=== PATIENT | female | born 1955 | race Caucasian/White ===

== ENCOUNTER 2021-08-06 22:47 | Emergency (ER) | payer MEDICAID ==
[~2021-08-06] VITALS: Ht 152.4 cm; Wt 71.7 kg
--- NOTE | 2021-08-06 22:55 | NUR ---
Pt brought back to room ED2A by armor reconnaissance vehicle crewman Adrian for Rt shoulder and rt flank pain s/p ground level fall at a spa. Pt complaining of moderate pain at site of injury. No bruising or barclay noted. Pt is AAOx4, with good color, temp and appearance. Pt states that the fall was due to a loss of balance and not due to blacking out or fainting. Pt denies any LOC. Pt is hypertensive at 157/76, all other VS normal. Pt denies being under treatment for HTN. Pt placed in a gown and awaiting EDMD for eval.
--- NOTE | 2021-08-06 23:10 | NUR ---
PCXR at bedside for port CXR. EKG performed and shown to EDMD.
[2021-08-06] MEDS ORDERED: ALBU8.5H8 IH (23:45)
[2021-08-06] MEDS ORDERED: MORPHINE SULFATE 2 MG/1 ML DISP.SYRIN IM ONE (23:45)
--- NOTE | 2021-08-06 23:49 | NUR ---
1mg MS IM given to pt in the Lt upper arm per EDMD for pain. Pt tolerated well, no s/sx of reaction noted. Med was effective against pain of injury site. Pt states that she feels much better and is much more relaxed. VSS
[2021-08-06] MEDS ORDERED: MORPHINE SULFATE 2 MG/1 ML DISP.SYRIN ONE (23:51)
[2021-08-07] MEDS ORDERED: ACET1TAB23 PO (01:01)
[2021-08-07] MEDS ORDERED: [UNRECOGNIZED DRUG - CODE] PO (01:01)
--- NOTE | 2021-08-07 01:08 | NUR ---
Tdap shot administered to Pt's Rt deltoid without difficulty or reaction, per EDMD. Pt tolerated well with no complaints of pain or discomfort.
[2021-08-07] MEDS ORDERED: TDAP DIPH,PERTUSS,TET VAC/PF 0.5 ML DISP.SYRIN IM ONE ×2 (01:15→01:17)
--- NOTE | 2021-08-07 01:15 | NUR ---
Discharge instructions given to daughter of pt to translate to pt. Pt acknowledges understanding of aftercare instructions and promises to abide by the advise contained in the DC instructions. Info about med risk factors given to daughter of pt such as risk of addiction, risk of sedation, no operating heavy machinery or driving while taking the tylenol #3. Pt warned of the risk of addiction and to use the pain pill sparingly, only in cases of moderate or severe pain, for mild pain, please use motrin 200mg. Pt is markedly doing better since first arriving. VSS, PE WNL, strong and equal manufacturing specialist strength bilat. Strong and reg pulses x4ext. Pt escorted out of ED via ambulation, after signing DC paperwork accompanied by daughter. No complaints of pain, nausea. No s/sx of distress present.
[2021-08-07 01:50] VITALS: BP 152/76
== END 2021-08-07 01:15 | disposition home or self-care (01) ==
LOC: ER 22:50
DX: R07.89 Other chest pain (principal); S50.811A Abrasion of right forearm, initial encounter; W16.032A Fall into swimming pool striking wall causing other injury, initial encounter; Y92.89 Other specified places as the place of occurrence of the external cause; R00.1 Bradycardia, unspecified
CPT/HCPCS: 71101; 90715; 93005; A4663; J2270

== ENCOUNTER 2023-09-11 16:03 | Inpatient (IN) | payer MEDICAID ==
[~2023-09-11] VITALS: Ht 162.6 cm; Wt 77.3 kg
[~2023-09-11 16:03] MED LIST: ACET1TAB23 PO; ALBU8.5H8 IH; [UNRECOGNIZED DRUG - CODE] PO
[2023-09-11] MEDS ORDERED: ALBU8.5H8 INH (16:56)
[2023-09-11] MEDS ORDERED: PRED50TA PO (16:56)
[2023-09-11 17:12] LABS: BASOPHILS # (AUTO) 0.1 K/UL (0.0-0.2); BASOPHILS % (AUTO) 1.1 % (0.0-2.0); EOSINOPHILS # (AUTO) 0.3 K/uL (0.0-0.7); EOSINOPHILS % (AUTO) 2.5 % (0.0-7.0); HEMATOCRIT 41.9 % (31.2-41.9); HEMOGLOBIN 13.9 g/dL (10.9-14.3); LYMPHOCYTES # (AUTO) 2.7 K/uL (0.8-4.8); LYMPHOCYTES % (AUTO) 21.7 % (20.5-51.5); MEAN CORPUSCULAR HEMOGLOBIN 29.9 uug (24.7-32.8); MEAN CORPUSCULAR HGB CONC 33 g/dL (32.3-35.6); MEAN CORPUSCULAR VOLUME 90.3 fL (75.5-95.3); MONOCYTES # (AUTO) 1.5 K/uL (0.1-1.30); MONOCYTES % (AUTO) 12.1 % (0.0-11.0); NEUTROPHILS # (AUTO) 7.7 K/uL (1.8-8.9); NEUTROPHILS % (AUTO) 62.6 % (38.5-71.5); PLATELET COUNT (AUTO) 256 K/uL (179-408); RED BLOOD CELL COUNT(AUTO) 4.64 MIL/uL (3.63-4.92); RED CELL DISTRIBUTION WIDTH 13.9 % (12.3-17.7); WHITE BLOOD COUNT (AUTO) 12.3 K/uL (3.8-11.8)
[2023-09-11] MEDS ORDERED: methylPREDNISolone SOD SUCC 125 MG/2 ML VIAL ONE (17:13)
[2023-09-11 17:15] LABS: DIFFERENTIAL COMMENT 1
[2023-09-11] MEDS ORDERED: methylPREDNISolone SOD SUCC 125 MG/2 ML VIAL IV ONE (17:15)
[2023-09-11] MEDS ORDERED: IPRATROPIUM BROMIDE 0.5 MG/2.5 ML NEBU NEB ONE (17:15)
[2023-09-11] MEDS ORDERED: ALBUTEROL SULFATE 2.5 MG/3 ML NEBU NEB ONE (17:15)
[2023-09-11 17:16] LABS: CALCIUM 8.8 mg/dL (8.5-10.1); CARBON DIOXIDE 28 mmol/L (21-32); CHLORIDE 107 mmol/L (98-107); CREATININE 0.8 mg/dL (0.6-1.3); GLUCOSE 113 mg/dL (74-106); POTASSIUM 3.6 mmol/L (3.5-5.1); SODIUM SERUM 138 mmol/L (136-145); UREA NITROGEN, BLOOD 13 mg/dL (7-18)
[2023-09-11 17:30] LABS: ALANINE AMINOTRANSFERASE 33 U/L (14-59); ALBUMIN 3.4 g/dL (3.4-5.0); ALKALINE PHOSPHATASE 58 U/L (50-136); ASPARTATE AMINOTRANSFERASE 23 U/L (15-37); BILIRUBIN,DIRECT 0.1 mg/dL (0.0-0.2); BILIRUBIN,TOTAL 0.4 mg/dL (0.2-1.0); NT-PRO BNP 133 pg/mL (0-125); TOTAL PROTEIN, SERUM 7.5 g/dL (6.4-8.2)
[2023-09-11] MEDS ORDERED: IPRATROPIUM BROMIDE 0.5 MG/2.5 ML NEBU ONE (17:33)
[2023-09-11] MEDS ORDERED: ALBUTEROL SULFATE 2.5 MG/3 ML NEBU ONE (17:33)
[2023-09-11 17:44] VITALS: O2SAT 96
[2023-09-11 18:33] VITALS: O2SAT 96
[2023-09-11 18:44] VITALS: O2SAT 97
[2023-09-11] MEDS ORDERED: FUROSEMIDE 20 MG/2 ML VIAL IV ONE (18:45)
[2023-09-11] MEDS ORDERED: ONDANSETRON 4 MG/2 ML VIAL IV ONE (18:45)
[2023-09-11] MEDS ORDERED: LORAZEPAM 2 MG/1 ML VIAL ONE (18:52)
[2023-09-11] MEDS ORDERED: ONDANSETRON 4 MG/2 ML VIAL ONE (18:53)
[2023-09-11] MEDS ORDERED: FUROSEMIDE 20 MG/2 ML VIAL ONE (18:53)
[2023-09-11] MEDS ORDERED: levoFLOXacin 750MG/D5W 150 ML IV ONE ×2 (19:15→19:27)
[2023-09-11] MEDS ORDERED: diphenhydrAMINE 50 MG/1 ML VIAL ONE (20:08)
[2023-09-11] MEDS ORDERED: diphenhydrAMINE 50 MG/1 ML VIAL IV PRN (20:15)
[2023-09-11] MEDS ORDERED: ACETAMINOPHEN 325 MG TABLET PO PRN (21:30)
[2023-09-11] MEDS ORDERED: ONDANSETRON 4 MG/2 ML VIAL IV PRN (21:30)
[2023-09-11] MEDS ORDERED: ZOLPIDEM 5 MG TABLET PO PRN (21:30)
[2023-09-11] MEDS ORDERED: REMEDY ESSENTIAL ZINC PASTE 113 GM TP PRN (21:30)
[2023-09-11] MEDS ORDERED: ALBUTEROL SULFATE 1.25 MG/3 ML NEBU NEB PRN (21:30)
[2023-09-11] MEDS ORDERED: levoFLOXacin 500 MG/D5W 500 MG in PREMIXED 1 EACH IV SCH (21:30)
[2023-09-11] MEDS ORDERED: MAGNESIUM HYDROXIDE 30 ML LIQUID UDC PO PRN (21:30)
[2023-09-11 21:52] VITALS: BP 140/65; TEMP 98.4; O2SAT 96
[2023-09-11] MEDS ORDERED: methylPREDNISolone SOD SUCC 40 MG/ML VIAL IV SCH (22:00)
[2023-09-12] VITALS (9 sets, daily range): BP systolic 127–158; BP diastolic 53–74; TEMP 98.2–100.6; O2SAT 94–99
[2023-09-12] MEDS: methylPREDNISolone SOD SUCC 40 MG/ML VIAL IV SCH ×4 (00:05→21:20)
[2023-09-12 06:23] LABS: BASOPHILS % (AUTO) 0.1 % (0.0-2.0); HEMATOCRIT 41.9 % (31.2-41.9); HEMOGLOBIN 13.8 g/dL (10.9-14.3); MEAN CORPUSCULAR HGB CONC 33 g/dL (32.3-35.6); MEAN CORPUSCULAR VOLUME 91.1 fL (75.5-95.3); MONOCYTES # (AUTO) 0.2 K/uL (0.1-1.30); MONOCYTES % (AUTO) 2.3 % (0.0-11.0); NEUTROPHILS # (AUTO) 7.8 K/uL (1.8-8.9); NEUTROPHILS % (AUTO) 86.6 % (38.5-71.5); PLATELET COUNT (AUTO) 280 K/uL (179-408); RED CELL DISTRIBUTION WIDTH 13.8 % (12.3-17.7); WHITE BLOOD COUNT (AUTO) 9.1 K/uL (3.8-11.8)
[2023-09-12 06:59] LABS: DIFFERENTIAL COMMENT 1
[2023-09-12 07:03] LABS: CALCIUM 9.5 mg/dL (8.5-10.1); CREATININE 1.3 mg/dL (0.6-1.3); MAGNESIUM 2.3 mg/dL (1.8-2.4); PHOSPHOROUS 2.8 mg/dL (2.5-4.9); POTASSIUM 3.9 mmol/L (3.5-5.1)
[2023-09-12] MEDS ORDERED: CEFTRIAXONE 1 G VIAL IM SCH (09:00)
[2023-09-12] MEDS: CEFTRIAXONE 1 G in IV DEXTROSE 5% 50 ML IV SCH (09:15)
[2023-09-12] MEDS: ALBUTEROL SULFATE 2.5 MG/3 ML NEBU NEB PRN (10:41)
[2023-09-12] MEDS: IPRATROPIUM BROMIDE 0.5 MG/2.5 ML NEBU NEB PRN (10:41)
[2023-09-12 10:58] LABS: THYROID STIMULATING HORMONE 0.47 mIU/mL (0.358-3.740)
[2023-09-12] MEDS ORDERED: AMLODIPINE 10 MG TABLET PO ONE (15:45)
[2023-09-12] MEDS ORDERED: AMLODIPINE 10 MG TABLET PO SCH (17:00)
[2023-09-12] MEDS: AZITHROMYCIN IV 500 MG in IV DEXTROSE 5% 250 ML IV SCH (17:14)
[2023-09-12] MEDS ORDERED: DEXTROSE 50% 50 ML DISP.SYRIN IV PRN (19:00)
[2023-09-12] MEDS: INSULIN REGULAR, HUMAN 300 UNITS/3 ML VIAL SQ PRN (21:16)
[2023-09-12] MEDS: BLOOD SUGAR DIAGNOSTIC 1 EACH STRIP VI SCH (21:27)
[2023-09-13] VITALS (9 sets, daily range): BP systolic 117–158; BP diastolic 71–80; TEMP 97.8–98.6; O2SAT 96–99
[2023-09-13] MEDS: ALBUTEROL SULFATE 2.5 MG/3 ML NEBU NEB PRN ×2 (02:15→13:14)
[2023-09-13] MEDS: IPRATROPIUM BROMIDE 0.5 MG/2.5 ML NEBU NEB PRN ×2 (02:15→13:14)
[2023-09-13 06:10] LABS: HEMATOCRIT 40.3 % (31.2-41.9); HEMOGLOBIN 13.2 g/dL (10.9-14.3); LYMPHOCYTES # (AUTO) 1.5 K/uL (0.8-4.8); LYMPHOCYTES % (AUTO) 6.1 % (20.5-51.5); MEAN CORPUSCULAR HEMOGLOBIN 29.6 uug (24.7-32.8); MEAN CORPUSCULAR HGB CONC 33 g/dL (32.3-35.6); MEAN CORPUSCULAR VOLUME 90.5 fL (75.5-95.3); MONOCYTES # (AUTO) 1.1 K/uL (0.1-1.30); MONOCYTES % (AUTO) 4.4 % (0.0-11.0); NEUTROPHILS % (AUTO) 89.5 % (38.5-71.5); PLATELET COUNT (AUTO) 306 K/uL (179-408); RED BLOOD CELL COUNT(AUTO) 4.45 MIL/uL (3.63-4.92); RED CELL DISTRIBUTION WIDTH 13.6 % (12.3-17.7); WHITE BLOOD COUNT (AUTO) 24.6 K/uL (3.8-11.8)
[2023-09-13] MEDS: methylPREDNISolone SOD SUCC 40 MG/ML VIAL IV SCH ×2 (06:14→20:25)
[2023-09-13] MEDS: BLOOD SUGAR DIAGNOSTIC 1 EACH STRIP VI SCH ×4 (06:15→20:22)
[2023-09-13 06:45] LABS: DIFFERENTIAL COMMENT 1
[2023-09-13 06:54] LABS: CALCIUM 9.5 mg/dL (8.5-10.1); MAGNESIUM 2.3 mg/dL (1.8-2.4); PHOSPHOROUS 2.9 mg/dL (2.5-4.9); POTASSIUM 4.3 mmol/L (3.5-5.1)
[2023-09-13] MEDS: CEFTRIAXONE 1 G in IV DEXTROSE 5% 50 ML IV SCH (08:15)
[2023-09-13] MEDS: AMLODIPINE 10 MG TABLET PO SCH (08:28)
[2023-09-13] MEDS: INSULIN REGULAR, HUMAN 300 UNIT/3 ML VIAL SQ PRN ×3 (08:29→16:34)
[2023-09-13] MEDS ORDERED: ASPIRIN EC 325 MG TABLET.DR PO ONE (14:17)
[2023-09-13] MEDS ORDERED: hydrALAZINE HCL 25 MG TABLET PO PRN (14:30)
[2023-09-13] MEDS ORDERED: GUAIFENESIN SUGAR FREE 100 MG/5 ML UDC PO PRN (16:00)
[2023-09-13] MEDS: AZITHROMYCIN IV 500 MG in IV DEXTROSE 5% 250 ML IV SCH (16:17)
[2023-09-13] MEDS ORDERED: BENZONATATE 100 MG CAPSULE PO SCH (19:15)
[2023-09-13] MEDS: INSULIN REGULAR, HUMAN 300 UNITS/3 ML VIAL SQ PRN (20:23)
[2023-09-13] MEDS: BENZONATATE 100 MG CAPSULE PO PRN (23:46)
[2023-09-14] VITALS (10 sets, daily range): BP systolic 130–146; BP diastolic 44–70; TEMP 97.7–98.9; O2SAT 92–100
[2023-09-14] MEDS: BLOOD SUGAR DIAGNOSTIC 1 EACH STRIP VI SCH ×4 (06:31→20:26)
[2023-09-14 07:50] LABS: BASOPHILS # (AUTO) 0.2 K/UL (0.0-0.2); BASOPHILS % (AUTO) 1.1 % (0.0-2.0); DIFFERENTIAL COMMENT 0; HEMATOCRIT 41.2 % (31.2-41.9); HEMOGLOBIN 13.4 g/dL (10.9-14.3); LYMPHOCYTES # (AUTO) 1.3 K/uL (0.8-4.8); LYMPHOCYTES % (AUTO) 5.9 % (20.5-51.5); MEAN CORPUSCULAR HEMOGLOBIN 29.9 uug (24.7-32.8); MEAN CORPUSCULAR HGB CONC 33 g/dL (32.3-35.6); MEAN CORPUSCULAR VOLUME 91.9 fL (75.5-95.3); MONOCYTES # (AUTO) 0.7 K/uL (0.1-1.30); NEUTROPHILS # (AUTO) 20.3 K/uL (1.8-8.9); PLATELET COUNT (AUTO) 316 K/uL (179-408); RED BLOOD CELL COUNT(AUTO) 4.48 MIL/uL (3.63-4.92); WHITE BLOOD COUNT (AUTO) 22.6 K/uL (3.8-11.8)
[2023-09-14 07:51] LABS: CALCIUM 9.7 mg/dL (8.5-10.1); CREATININE 0.8 mg/dL (0.6-1.3); MAGNESIUM 2.6 mg/dL (1.8-2.4); POTASSIUM 4.4 mmol/L (3.5-5.1)
[2023-09-14] MEDS: CEFTRIAXONE 1 G in IV DEXTROSE 5% 50 ML IV SCH (08:18)
[2023-09-14] MEDS: methylPREDNISolone SOD SUCC 40 MG/ML VIAL IV SCH ×2 (08:19→21:23)
[2023-09-14] MEDS: BENZONATATE 100 MG CAPSULE PO PRN ×2 (08:19→16:26)
[2023-09-14] MEDS: AMLODIPINE 10 MG TABLET PO SCH (08:20)
[2023-09-14] MEDS: ASPIRIN 81 MG TAB.CHEW PO SCH (08:38)
[2023-09-14] MEDS: INSULIN REGULAR, HUMAN 300 UNIT/3 ML VIAL SQ PRN ×2 (11:37→16:48)
[2023-09-14] MEDS ORDERED: methylPREDNISolone SOD SUCC 40 MG/ML VIAL IV PRN (13:45)
[2023-09-14] MEDS: AZITHROMYCIN IV 500 MG in IV DEXTROSE 5% 250 ML IV SCH (16:00)
[2023-09-14] MEDS: ALBUTEROL SULFATE 2.5 MG/3 ML NEBU NEB PRN ×2 (18:07→22:23)
[2023-09-14] MEDS: IPRATROPIUM BROMIDE 0.5 MG/2.5 ML NEBU NEB PRN ×2 (18:07→22:23)
[2023-09-14] MEDS: ATORVASTATIN 40 MG TABLET PO SCH (20:22)
[2023-09-14] MEDS: INSULIN REGULAR, HUMAN 300 UNITS/3 ML VIAL SQ PRN (21:25)
[2023-09-14] MEDS: ACETAMINOPHEN/CODEINE 300-30 MG TABLET PO PRN (22:29)
[2023-09-15] VITALS (10 sets, daily range): BP systolic 113–153; BP diastolic 56–72; TEMP 97.1–98.6; O2SAT 94–99
[2023-09-15] MEDS: methylPREDNISolone SOD SUCC 40 MG/ML VIAL IV SCH ×3 (06:11→22:07)
[2023-09-15] MEDS: BLOOD SUGAR DIAGNOSTIC 1 EACH STRIP VI SCH ×4 (06:11→20:17)
[2023-09-15 07:03] LABS: BASOPHILS % (AUTO) 0.1 % (0.0-2.0); HEMATOCRIT 39.9 % (31.2-41.9); HEMOGLOBIN 13.1 g/dL (10.9-14.3); LYMPHOCYTES # (AUTO) 1.6 K/uL (0.8-4.8); LYMPHOCYTES % (AUTO) 8.4 % (20.5-51.5); MEAN CORPUSCULAR HEMOGLOBIN 29.9 uug (24.7-32.8); MEAN CORPUSCULAR HGB CONC 33 g/dL (32.3-35.6); MEAN CORPUSCULAR VOLUME 90.8 fL (75.5-95.3); MONOCYTES # (AUTO) 0.7 K/uL (0.1-1.30); MONOCYTES % (AUTO) 3.7 % (0.0-11.0); NEUTROPHILS # (AUTO) 16.6 K/uL (1.8-8.9); NEUTROPHILS % (AUTO) 87.8 % (38.5-71.5); PLATELET COUNT (AUTO) 350 K/uL (179-408); RED CELL DISTRIBUTION WIDTH 14.1 % (12.3-17.7); WHITE BLOOD COUNT (AUTO) 18.9 K/uL (3.8-11.8)
[2023-09-15 07:15] LABS: DIFFERENTIAL COMMENT 1
[2023-09-15 07:19] LABS: CALCIUM 9.7 mg/dL (8.5-10.1); CREATININE 0.9 mg/dL (0.6-1.3); MAGNESIUM 2.6 mg/dL (1.8-2.4); PHOSPHOROUS 3.5 mg/dL (2.5-4.9); POTASSIUM 4.5 mmol/L (3.5-5.1)
[2023-09-15] MEDS: CEFTRIAXONE 1 G in IV DEXTROSE 5% 50 ML IV SCH (08:22)
[2023-09-15] MEDS: ACETAMINOPHEN/CODEINE 300-30 MG TABLET PO PRN ×3 (08:23→22:07)
[2023-09-15] MEDS: ASPIRIN 81 MG TAB.CHEW PO SCH (08:23)
[2023-09-15] MEDS: BENZONATATE 100 MG CAPSULE PO PRN ×2 (08:23→15:44)
[2023-09-15] MEDS: AMLODIPINE 10 MG TABLET PO SCH (08:23)
[2023-09-15] MEDS: LIDOCAINE 5% PATCH TD SCH (11:17)
[2023-09-15] MEDS: ALBUTEROL SULFATE 2.5 MG/3 ML NEBU NEB SCH ×3 (11:30→19:35)
[2023-09-15] MEDS: IPRATROPIUM BROMIDE 0.5 MG/2.5 ML NEBU NEB SCH ×3 (11:30→19:35)
[2023-09-15] MEDS: INSULIN REGULAR, HUMAN 300 UNIT/3 ML VIAL SQ PRN ×3 (12:36→17:52)
[2023-09-15] MEDS: AZITHROMYCIN IV 500 MG in IV DEXTROSE 5% 250 ML IV SCH (16:49)
[2023-09-15] MEDS: ATORVASTATIN 40 MG TABLET PO SCH (20:13)
[2023-09-15] MEDS: INSULIN REGULAR, HUMAN 300 UNITS/3 ML VIAL SQ PRN (20:18)
[2023-09-16 00:20] VITALS: BP 136/76; TEMP 98.7; O2SAT 92
[2023-09-16 04:00] VITALS: BP 131/63; TEMP 98.3; O2SAT 98
[2023-09-16] MEDS: methylPREDNISolone SOD SUCC 40 MG/ML VIAL IV SCH (06:14)
[2023-09-16] MEDS: BLOOD SUGAR DIAGNOSTIC 1 EACH STRIP VI SCH (06:30)
[2023-09-16 07:21] LABS: BASOPHILS % (AUTO) 0.1 % (0.0-2.0); HEMATOCRIT 40.6 % (31.2-41.9); HEMOGLOBIN 13.5 g/dL (10.9-14.3); LYMPHOCYTES # (AUTO) 1.7 K/uL (0.8-4.8); LYMPHOCYTES % (AUTO) 8.2 % (20.5-51.5); MEAN CORPUSCULAR HGB CONC 33 g/dL (32.3-35.6); MEAN CORPUSCULAR VOLUME 90.1 fL (75.5-95.3); MONOCYTES # (AUTO) 0.8 K/uL (0.1-1.30); MONOCYTES % (AUTO) 3.8 % (0.0-11.0); NEUTROPHILS # (AUTO) 18.7 K/uL (1.8-8.9); NEUTROPHILS % (AUTO) 87.9 % (38.5-71.5); PLATELET COUNT (AUTO) 363 K/uL (179-408); RED CELL DISTRIBUTION WIDTH 13.8 % (12.3-17.7); WHITE BLOOD COUNT (AUTO) 21.2 K/uL (3.8-11.8)
[2023-09-16 07:27] LABS: DIFFERENTIAL COMMENT 1
[2023-09-16 07:33] LABS: ALBUMIN 3.1 g/dL (3.4-5.0); BILIRUBIN,TOTAL 0.3 mg/dL (0.2-1.0); CALCIUM 9.7 mg/dL (8.5-10.1); CREATININE 0.9 mg/dL (0.6-1.3); MAGNESIUM 2.6 mg/dL (1.8-2.4); PHOSPHOROUS 3.7 mg/dL (2.5-4.9); POTASSIUM 4.3 mmol/L (3.5-5.1)
[2023-09-16] MEDS: ALBUTEROL SULFATE 2.5 MG/3 ML NEBU NEB SCH ×2 (07:35→07:46)
[2023-09-16] MEDS: IPRATROPIUM BROMIDE 0.5 MG/2.5 ML NEBU NEB SCH ×2 (07:35→07:46)
[2023-09-16 08:05] VITALS: BP 145/69; TEMP 98.4; O2SAT 93
[2023-09-16 08:12] LABS: ABG BASE EXCESS 4.1 mmol/L (-2.0-2.0); ABG HCO3 28.5 mmol/L (22.0-26.0); ABG PCO2 41.8 mmHg (35.0-48.0); ABG PH 7.451 (7.340-7.440); ABG PO2 75.9 mmHg (75.0-100.0); ABG SITE LEFT RADIAL; AaDO2 95.7 mmHg; COHb 0.3 % (0.0-3.9); MetHb 0.4 % (0.0-1.5); O2Hb 95.1 % (94.0-97.0)
[2023-09-16] MEDS: LIDOCAINE 5% PATCH TD SCH (08:29)
[2023-09-16 08:30] VITALS: BP 145/69
[2023-09-16] MEDS: ASPIRIN 81 MG TAB.CHEW PO SCH (08:30)
[2023-09-16] MEDS: AMLODIPINE 10 MG TABLET PO SCH (08:30)
[2023-09-16] MEDS: CEFTRIAXONE 1 G in IV DEXTROSE 5% 50 ML IV SCH (08:30)
[2023-09-16] MEDS: INSULIN REGULAR, HUMAN 300 UNIT/3 ML VIAL SQ PRN (08:31)
[2023-09-16] MEDS ORDERED: FLUTICASONE PROP NASAL SPRAY 16 GM BOTTLE NS SCH (09:00)
[2023-09-16] MEDS ORDERED: AMLO10TA59 PO (10:43)
[2023-09-16] MEDS ORDERED: FLUT1DIS28 INH (10:43)
[2023-09-16] MEDS ORDERED: BENZ-38 PO (10:43)
[2023-09-16] MEDS ORDERED: METH4TAB3 PO (10:43)
[2023-09-16] MEDS ORDERED: FLUT16SP16 NS (10:43)
[2023-09-16] MEDS ORDERED: ATOR40TA PO (10:43)
[2023-09-16] MEDS ORDERED: ASPI81TA31 PO (10:43)
== END 2023-09-16 11:30 | disposition home or self-care (01) | DRG 133 ==
LOC: ER 16:04 → TELE3 19:26
PROVIDERS: ADMIT Nurse Practitioner Acute Care; ATTEND Student in an Organized Health Care Education/Training Program
DX: J96.01 Acute respiratory failure with hypoxia (principal); N17.0 Acute kidney failure with tubular necrosis; I21.A1 Myocardial infarction type 2; J45.901 Unspecified asthma with (acute) exacerbation; J20.9 Acute bronchitis, unspecified; I11.9 Hypertensive heart disease without heart failure; E86.0 Dehydration; R91.1 Solitary pulmonary nodule; E78.5 Hyperlipidemia, unspecified; Z86.16 Personal history of COVID-19; R73.9 Hyperglycemia, unspecified; T38.0X5A Adverse effect of glucocorticoids and synthetic analogues, initial encounter; Y92.89 Other specified places as the place of occurrence of the external cause; J32.8 Other chronic sinusitis; M94.0 Chondrocostal junction syndrome [Tietze]; Z91.09 Other allergy status, other than to drugs and biological substances; I45.2 Bifascicular block; E66.9 Obesity, unspecified; Z68.29 Body mass index [BMI] 29.0-29.9, adult; G89.29 Other chronic pain; M19.90 Unspecified osteoarthritis, unspecified site; F17.210 Nicotine dependence, cigarettes, uncomplicated; Z83.6 Family history of other diseases of the respiratory system; Z91.199 Patient's noncompliance with other medical treatment and regimen due to unspecified reason; J34.2 Deviated nasal septum
CPT/HCPCS: 36415; 36600; 70486; 71045; 71250; 82652; 82785; 83605; 83735; 84100; 84443; 84484; 85025; 85730; 86140; 87040; 93005; 93307; 94640; A4606; A4663; G0378; J0456; J0696; J1200; J1815; J1940; J1956; J2060; J2405; J2920; J2930; J3535; J3590; J7050

== ENCOUNTER 2024-10-31 00:11 | Inpatient (IN) | payer MEDICAID ==
[2024-10-31] VITALS (10 sets, daily range): BP systolic 122–136; BP diastolic 48–66; TEMP 98.2–98.5; O2SAT 87–99
[~2024-10-31] VITALS: Ht 160 cm; Wt 76.2 kg
[~2024-10-31 00:11] MED LIST changes: +AMLO10TA59 PO; +ASPI81TA31 PO; +ATOR40TA PO; +BENZ-38 PO; +FLUT16SP16 NS; +FLUT1DIS28 INH; +METH4TAB3 PO
[2024-10-31] MEDS: ALBUTEROL SULFATE 2.5 MG/3 ML NEBU NEB ONE (00:45)
[2024-10-31] MEDS: IPRATROPIUM BROMIDE 0.5 MG/2.5 ML NEBU NEB ONE (00:45)
[2024-10-31] MEDS ORDERED: IPRATROPIUM BROMIDE 0.5 MG/2.5 ML NEBU ONE (00:49)
[2024-10-31] MEDS ORDERED: ALBUTEROL SULFATE 2.5 MG/3 ML NEBU ONE (00:49)
[2024-10-31 01:13] LABS: BASOPHILS % (AUTO) 0.1 % (0.0-2.0); HEMATOCRIT 42.2 % (31.2-41.9); LYMPHOCYTES # (AUTO) 0.6 K/uL (0.8-4.8); LYMPHOCYTES % (AUTO) 4.2 % (20.5-51.5); MEAN CORPUSCULAR HEMOGLOBIN 29.3 uug (24.7-32.8); MEAN CORPUSCULAR HGB CONC 33 g/dL (32.3-35.6); MEAN CORPUSCULAR VOLUME 88.3 fL (75.5-95.3); MONOCYTES # (AUTO) 0.8 K/uL (0.1-1.30); MONOCYTES % (AUTO) 5.4 % (0.0-11.0); NEUTROPHILS # (AUTO) 13.4 K/uL (1.8-8.9); NEUTROPHILS % (AUTO) 90.3 % (38.5-71.5); PLATELET COUNT (AUTO) 196 K/uL (179-408); RED BLOOD CELL COUNT(AUTO) 4.78 MIL/uL (3.63-4.92); WHITE BLOOD COUNT (AUTO) 14.9 K/uL (3.8-11.8)
[2024-10-31 01:16] LABS: DIFFERENTIAL COMMENT 1
[2024-10-31] MEDS ORDERED: methylPREDNISolone SOD SUCC 125 MG/2 ML VIAL ONE (01:44)
[2024-10-31] MEDS ORDERED: CEFTRIAXONE /D5W 50ML IVPB **ER PYXIS IV ONE (01:44)
[2024-10-31] MEDS: methylPREDNISolone SOD SUCC 125 MG/2 ML VIAL IV ONE (01:45)
[2024-10-31] MEDS: CEFTRIAXONE 1 G in IV DEXTROSE 5% 50 ML IV ONE (01:45)
[2024-10-31 01:46] LABS: ALANINE AMINOTRANSFERASE 69 U/L (14-59); ALBUMIN 3.5 g/dL (3.4-5.0); ALKALINE PHOSPHATASE 63 U/L (50-136); ASPARTATE AMINOTRANSFERASE 38 U/L (15-37); BILIRUBIN,DIRECT 0.1 mg/dL (0.0-0.2); BILIRUBIN,TOTAL 0.5 mg/dL (0.2-1.0); CALCIUM 8.8 mg/dL (8.5-10.1); CARBON DIOXIDE 27 mmol/L (21-32); CHLORIDE 102 mmol/L (98-107); CREATININE 0.8 mg/dL (0.6-1.3); GLUCOSE 151 mg/dL (74-106); NT-PRO BNP 15 pg/mL (0-125); POTASSIUM 3.9 mmol/L (3.5-5.1); SODIUM SERUM 139 mmol/L (136-145); TOTAL PROTEIN, SERUM 8.2 g/dL (6.4-8.2); UREA NITROGEN, BLOOD 16 mg/dL (7-18)
[2024-10-31] MEDS: IBUPROFEN 400 MG TABLET PO ONE (04:12)
[2024-10-31] MEDS ORDERED: CEFTRIAXONE 500 MG in IV DEXTROSE 5% 50 ML IV SCH (07:00)
[2024-10-31] MEDS ORDERED: ACETAMINOPHEN 325 MG TABLET PO PRN (07:00)
[2024-10-31] MEDS ORDERED: ONDANSETRON 4 MG/2 ML VIAL IV PRN (07:00)
[2024-10-31] MEDS ORDERED: methylPREDNISolone SOD SUCC 40 MG/ML VIAL ONE (08:10)
[2024-10-31] MEDS: methylPREDNISolone SOD SUCC 40 MG/ML VIAL IV SCH (08:27)
[2024-10-31] MEDS: AZITHROMYCIN IV 500 MG in IV DEXTROSE 5% 250 ML IV SCH (08:27)
[2024-10-31] MEDS ORDERED: ENOXAPARIN SODIUM 40 MG/0.4 ML DISP.SYRIN SQ ONE (09:05)
[2024-10-31] MEDS: ENOXAPARIN SODIUM 40 MG/0.4 ML DISP.SYRIN SQ SCH (09:06)
[2024-10-31] MEDS ORDERED: SACU1TAB PO (11:34)
[2024-10-31] MEDS ORDERED: ISOS60TA72 PO (11:34)
[2024-10-31] MEDS ORDERED: MONT10TA33 PO (11:34)
[2024-10-31] MEDS ORDERED: AMLO-212 PO (11:34)
[2024-10-31 14:23] LABS: *BILIRUBIN,URIN NEGATIVE (NEGATIVE); *CLARITY,URINE CLEAR (CLEAR); *COLOR,URINE YELLOW (YELLOW); *KETONES,URINE NEGATIVE (NEGATIVE); *PROTEIN,URINE NEGATIVE (NEGATIVE); *UROBILINOGEN,URINE 0.2 E.U./dl (NORMAL); LEUKOCYTE ESTERASE ,URINE NEGATIVE (NEGATIVE); NITRITE, URINE NEGATIVE (NEGATIVE); UGLUCOSE 2+ (NEGATIVE)
[2024-10-31 14:24] LABS: *BLOOD, URINE TRACE (NEGATIVE)
[2024-10-31 14:25] LABS: BACTERIA,URINE FEW /HPF (NONE SEEN); SQUAMOUS EPITHELIAL CELL,UR FEW /HPF (NONE SEEN); WBC,URINE 0-3 /HPF (0-3)
[2024-10-31] MEDS: IPRATROPIUM BROMIDE 0.5 MG/2.5 ML NEBU NEB SCH (15:40)
[2024-10-31] MEDS: ALBUTEROL SULFATE 2.5 MG/ 0.5 ML NEBU NEB SCH (15:40)
[2024-10-31] MEDS: IV NS 1000 ML 1,000 ML IV PRN (16:15)
[2024-10-31] MEDS: ISOSORBIDE MONONITRATE 60 MG TAB.SR.24H PO SCH (16:16)
[2024-10-31] MEDS: SACUBITRIL/VALSARTAN 24 MG-26 TABLET PO SCH (16:19)
[2024-10-31] MEDS: CEFTRIAXONE 1 G in IV DEXTROSE 5% 50 ML IV SCH (20:24)
[2024-11-01] VITALS (15 sets, daily range): BP systolic 121–145; BP diastolic 52–68; TEMP 98.1–98.7; O2SAT 92–99
[2024-11-01 06:58] LABS: BASOPHILS % (AUTO) 0.1 % (0.0-2.0); HEMATOCRIT 35.2 % (31.2-41.9); HEMOGLOBIN 11.7 g/dL (10.9-14.3); LYMPHOCYTES # (AUTO) 1.4 K/uL (0.8-4.8); LYMPHOCYTES % (AUTO) 5.7 % (20.5-51.5); MEAN CORPUSCULAR HEMOGLOBIN 29.4 uug (24.7-32.8); MEAN CORPUSCULAR HGB CONC 33 g/dL (32.3-35.6); MEAN CORPUSCULAR VOLUME 88.7 fL (75.5-95.3); MONOCYTES # (AUTO) 1.3 K/uL (0.1-1.30); MONOCYTES % (AUTO) 5.1 % (0.0-11.0); NEUTROPHILS # (AUTO) 22.1 K/uL (1.8-8.9); NEUTROPHILS % (AUTO) 89.1 % (38.5-71.5); PLATELET COUNT (AUTO) 187 K/uL (179-408); RED BLOOD CELL COUNT(AUTO) 3.97 MIL/uL (3.63-4.92); WHITE BLOOD COUNT (AUTO) 24.8 K/uL (3.8-11.8)
[2024-11-01 07:10] LABS: ALANINE AMINOTRANSFERASE 50 U/L (14-59); ALBUMIN 2.7 g/dL (3.4-5.0); ALKALINE PHOSPHATASE 52 U/L (50-136); ASPARTATE AMINOTRANSFERASE 18 U/L (15-37); BILIRUBIN,DIRECT 0.1 mg/dL (0.0-0.2); BILIRUBIN,TOTAL 0.3 mg/dL (0.2-1.0); CALCIUM 8.5 mg/dL (8.5-10.1); CARBON DIOXIDE 26 mmol/L (21-32); CHLORIDE 107 mmol/L (98-107); CREATININE 0.7 mg/dL (0.6-1.3); GLUCOSE 186 mg/dL (74-106); MAGNESIUM 2.2 mg/dL (1.8-2.4); POTASSIUM 4.1 mmol/L (3.5-5.1); SODIUM SERUM 140 mmol/L (136-145); TOTAL PROTEIN, SERUM 6.9 g/dL (6.4-8.2); UREA NITROGEN, BLOOD 14 mg/dL (7-18)
[2024-11-01 08:17] LABS: DIFFERENTIAL COMMENT 1
[2024-11-01] MEDS: MONTELUKAST SODIUM 10 MG TABLET PO SCH (09:02)
[2024-11-01] MEDS: AMLODIPINE 5 MG TABLET PO SCH (09:02)
[2024-11-01] MEDS: ASPIRIN 81 MG TAB.CHEW PO SCH (09:02)
[2024-11-02] VITALS (7 sets, daily range): BP systolic 144–153; BP diastolic 70–75; TEMP 97.6–98.4; O2SAT 96–99
[2024-11-02 06:56] LABS: HEMATOCRIT 38.1 % (31.2-41.9); HEMOGLOBIN 12.7 g/dL (10.9-14.3); LYMPHOCYTES # (AUTO) 1.3 K/uL (0.8-4.8); LYMPHOCYTES % (AUTO) 4.9 % (20.5-51.5); MEAN CORPUSCULAR HEMOGLOBIN 29.6 uug (24.7-32.8); MEAN CORPUSCULAR HGB CONC 33 g/dL (32.3-35.6); MEAN CORPUSCULAR VOLUME 88.8 fL (75.5-95.3); MONOCYTES # (AUTO) 0.8 K/uL (0.1-1.30); MONOCYTES % (AUTO) 3.1 % (0.0-11.0); NEUTROPHILS # (AUTO) 24.5 K/uL (1.8-8.9); PLATELET COUNT (AUTO) 258 K/uL (179-408); RED BLOOD CELL COUNT(AUTO) 4.29 MIL/uL (3.63-4.92); RED CELL DISTRIBUTION WIDTH 14.3 % (12.3-17.7); WHITE BLOOD COUNT (AUTO) 26.6 K/uL (3.8-11.8)
[2024-11-02 07:11] LABS: ALANINE AMINOTRANSFERASE 69 U/L (14-59); ALBUMIN 3.1 g/dL (3.4-5.0); ALKALINE PHOSPHATASE 63 U/L (50-136); ASPARTATE AMINOTRANSFERASE 41 U/L (15-37); BILIRUBIN,DIRECT 0.1 mg/dL (0.0-0.2); BILIRUBIN,TOTAL 0.3 mg/dL (0.2-1.0); CALCIUM 8.9 mg/dL (8.5-10.1); CARBON DIOXIDE 24 mmol/L (21-32); CHLORIDE 107 mmol/L (98-107); CREATININE 0.9 mg/dL (0.6-1.3); GLUCOSE 214 mg/dL (74-106); MAGNESIUM 2.3 mg/dL (1.8-2.4); PHOSPHOROUS 2.5 mg/dL (2.5-4.9); POTASSIUM 4.1 mmol/L (3.5-5.1); SODIUM SERUM 144 mmol/L (136-145); TOTAL PROTEIN, SERUM 7.3 g/dL (6.4-8.2); UREA NITROGEN, BLOOD 12 mg/dL (7-18)
[2024-11-02 07:17] LABS: DIFFERENTIAL COMMENT 1
[2024-11-02 07:18] LABS: THYROID STIMULATING HORMONE 0.117 mIU/mL (0.358-3.740)
[2024-11-02 16:20] LABS: CHOLESTEROL 147 mg/dL (<200); HDL CHOLESTEROL 52 mg/dL (40-60); TRIGLYCERIDES 65 MG/DL (30-150)
[2024-11-02] MEDS ORDERED: methylPREDNISolone SOD SUCC 40 MG/ML VIAL IV SCH (21:00)
[2024-11-02 22:31] LABS: IRON, SERUM 106 ug/dL (50-175)
[2024-11-06 21:11] LABS: ADENOVIRUS Not Detected (Not Detected); CORONAVIRUS 229E Not Detected (Not Detected); CORONAVIRUS HKU1 Not Detected (Not Detected); CORONAVIRUS NL63 Not Detected (Not Detected); CORONAVIRUS OC43 Not Detected (Not Detected); NP BORDETELLA PERTUSIS Not Detected (Not Detected); NP CHLAMYDOPHILA PNEUMONIAE Not Detected (Not Detected); NP HUMAN METAPNEUMOVIRUS Not Detected (Not Detected); NP HUMAN RHINO/ENTERO VIRUS Not Detected (Not Detected); NP INFLUENZA A Detected (Not Detected); NP INFLUENZA A/H1 Not Detected (Not Detected); NP INFLUENZA A/H1-2009 Detected (Not Detected); NP INFLUENZA A/H3 Not Detected (Not Detected); NP INFLUENZA B Not Detected (Not Detected); NP MYCOPLASMA PNEUMONIAE Not Detected (Not Detected); NP PARAINFLUENZA 1 Not Detected (Not Detected); NP PARAINFLUENZA 2 Not Detected (Not Detected); NP PARAINFLUENZA 3 Not Detected (Not Detected); NP PARAINFLUENZA 4 Not Detected (Not Detected); NP RESPIRATORY SYNCYTIAL VIRUS Not Detected (Not Detected)
== END 2024-11-02 13:25 | disposition home or self-care (01) | DRG 720 ==
LOC: ER 00:17 → TRANSITION 04:02 → TELE3 14:29 → MEDSURG3 11-02 10:26
PROVIDERS: ADMIT Nurse Practitioner Acute Care; ATTEND Student in an Organized Health Care Education/Training Program
DX: A41.9 Sepsis, unspecified organism (principal); J96.01 Acute respiratory failure with hypoxia; I21.A1 Myocardial infarction type 2; J45.901 Unspecified asthma with (acute) exacerbation; D35.02 Benign neoplasm of left adrenal gland; K76.0 Fatty (change of) liver, not elsewhere classified; J06.9 Acute upper respiratory infection, unspecified; I45.2 Bifascicular block; I25.10 Atherosclerotic heart disease of native coronary artery without angina pectoris; Z88.1 Allergy status to other antibiotic agents; Z87.891 Personal history of nicotine dependence; I11.9 Hypertensive heart disease without heart failure; G89.29 Other chronic pain; M15.9 Polyosteoarthritis, unspecified; Z68.29 Body mass index [BMI] 29.0-29.9, adult; E66.9 Obesity, unspecified; E78.5 Hyperlipidemia, unspecified; Z79.51 Long term (current) use of inhaled steroids; T38.0X5A Adverse effect of glucocorticoids and synthetic analogues, initial encounter; F17.210 Nicotine dependence, cigarettes, uncomplicated; R91.8 Other nonspecific abnormal finding of lung field; E67.3 Hypervitaminosis D; Z91.09 Other allergy status, other than to drugs and biological substances
CPT/HCPCS: 36415; 71045; 71250; 82652; 83550; 83605; 83735; 84100; 84443; 84484; 85025; 85610; 87040; 93307; 94640; 94760; A4606; A4663; G0378; J0456; J0696; J1650; J2919; J3590; J7040; J7050